=== PATIENT | female | born 1960 | race Caucasian/White ===

== ENCOUNTER 2025-02-20 20:47 | Emergency (ER) | payer MEDICARE, BC, SELFPAY ==
[2025-02-20 21:15] VITALS: BP 141/87; PULSE 67; RESP 16; TEMP 36.7; O2SAT 98; BMI 24.5
--- NOTE | 2025-02-20 21:16 | ED.HA ---
HPI - Headache General Time Seen by Provider: 21:16 Date Seen: 02/20/25 Chief Complaint: Headache/Migraine Stated Complaint: migraine Time Seen by Provider: 02/20/25 21:16 Source: patient Mode of arrival: ambulatory History of Present Illness HPI Narrative: Charlotte is a 64 yo female who has a past medical history of migraine headaches who presents the emergency department for evaluation of headache. Patient reports that she developed type migraine headache today, reports similar symptoms of migraines in the past. Patient states that she tried to take Advil 400 mg at 9:00 a.m., and again at 5:00 p.m. to try to get on top of it however reports review ongoing/worsening symptoms. Patient states she has needed to go to the emergency department to get it a a shot before to help with her migraines. Patient reports corneal was seen of exam. No soreness on the left side of her shoulder, neck, and her left lateral today for his/red eye discomfort. Patient reports throbbing sensation over her lateral eye. Patient denies any vision loss but does report some photo sensitivity. Patient reports nausea but no vomiting. Denies any weakness, paresthesias, fever, chills, chest pain, shortness of breath. Patient reports similar migraines in the past and just wants to feel better. No other complaints. Related Data Home Medications ?Medication ?Instructions ?Recorded ?Confirmed No Known Home Medications 02/20/25 02/20/25 Allergies Allergy/AdvReac Type Severity Reaction Status Date / Time No Known Drug Allergies Allergy Verified 02/20/25 21:18 Review of Systems Narrative: Past medical history, past surgical history, medications, allergies, family history, and social history were reviewed with the patient. No additional pertinent items. A medically appropriate review of systems was performed with pertinent positives and negatives noted in HPI, all other systems negative. PFSH PFSH Social History Smoking Status: Never smoker How often do you have a drink containing alcohol: never AUDIT-C Alcohol total score: 0 Non-prescribed substance use: denies use Exam Narrative: Exam Narrative: General: Afebrile, in distress 2/2 to pain HEENT: Normocephalic, atraumatic, PERRL, conjunctiva normal. MMM Neck: non-tender, supple, full ROM, no menigeal signs Cardio: regular rate. regular rhythm Resp: Normal work of breathing, no respiratory distress, lungs clear bilaterally, no wheezing, rhonchi, rales Chest/Back: no visual signs of trauma, no midline tenderness, no CVA tenderness Abdomen: soft, non distension, no tenderness, no peritoneal signs Neuro: alert and fully oriented. CN II-XII intact. Normal strength and sensation in all extremities. Normal gait. MSK: no deformities. Normal range of motion Integumentary/Skin: no rash visualized, normal color Psych: normal affect, normal behavior Const: Vital Signs, click to edit/add: Vital Signs - 24 hr 02/20/25 21:15 Temperature 98.1 F Pulse Rate [Pulse Oximeter] 67 Respiratory Rate 16 [facility] 141/87 H Pulse Oximetry 98 Oxygen Delivery Me thod Room Air Course Vital Signs Vital signs: Initial Vital Signs Temperature 98.1 F 02/20/25 21:15 Temperature Source Temporal Artery Scan 02/20/25 21:15 Pulse Rate 67 02/20/25 21:15 Respiratory Rate 16 02/20/25 21:15 Blood Pressure 141/87 H 02/20/25 21:15 Blood Pressure Mean 105 02/20/25 21:15 Blood Pressure Position Sitting 02/20/25 21:15 Pulse Oximetry 98 02/20/25 21:15 Oxygen Delivery Method Room Air 02/20/25 21:15 Vital Signs Temperature 98.1 F 02/20/25 21:15 Pulse Rate 67 02/20/25 21:15 Respiratory Rate 16 02/20/25 21:15 Blood Pressure 141/87 H 02/20/25 21:15 Pulse Oximetry 98 02/20/25 21:15 Oxygen Delivery Method Room Air 02/20/25 21:15 Temperature 98.1 F 02/20/25 21:15 Pulse Rate 67 02/20/25 21:15 Respiratory Rate 16 02/20/25 21:15 Blood Pressure 141/87 H 02/20/25 21:15 Pulse Oximetry 98 02/20/25 21:15 Oxygen Delivery Method Room Air 02/20/25 21:15 Medications Administered Medications: Discontinued Medications Generic Name Dose Route Start Last Admin Trade Name Freq PRN Reason Stop Dose Admin Acetaminophen 1,000 mg 02/20/25 21:40 02/20/25 21:58 Acetaminophen 500 Mg Tablet PO 02/20/25 21:41 Not Given ONCE ONE Dexamethasone 10 mg 02/20/25 21:40 02/20/25 21:58 Dexamethasone 10 Mg/Ml Pf IVP 02/20/25 21:41 10 mg ONCE ONE Administration Diphenhydramine HCl 25 mg 02/20/25 21:40 02/20/25 21:59 Diphenhydramine 50 Mg/Ml Inj IVP 02/20/25 21:41 25 mg ONCE ONE Administration Sodium Chloride 1,000 mls @ 1,000 mls/hr 02/20/25 21:45 02/20/25 22:27 0.9 % Sodium Chloride 1000 Ml IV 02/20/25 22:44 1,000 mls/hr .Q1H DOROTEO Administration Metoclopramide HCl 10 mg 02/20/25 21:40 02/20/25 22:01 Metoclopramide Hcl 5 Mg/Ml Inj IVP 02/20/25 21:41 10 mg ONCE ONE Administration MDM - Headache MDM Narrative Medical decision making narrative: Charlotte is a 64 yo female who has a past medical history of migraine headaches who presents the emergency department for evaluation of headache. Upon arrival patient is nontoxic appearing, afebrile, in distress secondary to pain. Patient is slightly hypertensive with blood pressure 141/87, reports no tachycardic heart rate 67, oxygen 98% on room air. Suspect patient's surgeries are most likely secondary to migraine headache. No red flags, low suspicious for acute intracranial hemorrhage/CVA/SAH or infectious etiology/meningitis given the clinical presentation, and history of similar presentations in the past. At this time will treat with migraine cocktail with 1 L IV fluid bolus, Tylenol, IV Reglan, Benadryl, dexamethasone, and re-evaluate. If worsening symptoms will expand work up. On re-evaluation patient reports significant improvement of her symptoms after IV medication is requesting discharge home. Patient has follow-up with her primary care provider to establish care. Patient feels comfortable with discharge with continued supportive care, rest, oral hydration, [id number] medications. Strict return precautions discussed. Patient understands and agrees the plan. Medical Records Attestation: I reviewed the patient's medical records. Discharge Plan Discharge Clinical Impression: Headache Patient Disposition: Home, Self-Care Condition: Improved Additional Instructions: Please follow-up with your primary care provider in the next 3-5 days for further evaluation and follow-up. Please rest, drink plenty of fluids. Please alternate taking ibuprofen 600 mg and Tylenol 1000 mg every 6 hours as needed for pain. Please return to the emergency department if you develop severe worsening headache, persistent vomiting, vision changes, weakness, tingling, numbness, or any worsening symptoms. It was a pleasure taking care of you today. We hope you feel better soon. Prescriptions: No Action No Known Home Medications Follow Up/Referrals: Provider,Not a Local [Primary Care Provider, Family Practice] Stand Alone Forms: [employer] Info Instructions
[2025-02-20] MEDS: DEXAMETHASONE 10 MG/ML PF IVP (21:58)
[2025-02-20] MEDS: METOCLOPRAMIDE HCL 5 MG/ML INJ 10 MG IVP (22:01)
[2025-02-20 23:13] VITALS: BP 132/71; PULSE 71; RESP 16; TEMP 36.7; O2SAT 98
[2025-02-20 23:14] VITALS: BP 132/71; PULSE 71; RESP 16; TEMP 36.7
== END 2025-02-20 23:15 | disposition home or self-care (01) ==
PROVIDERS: Emergency Provider Emergency Medicine
DX: R51.9 Headache, unspecified (principal)
CPT/HCPCS: 96374; 96375; 99284; 99285; J1100; J1200; J2765; J7030